=== PATIENT | female | born 1970 | race African-American/Black ===

== ENCOUNTER 2020-02-25 08:01 | Emergency (ER) | payer MEDICAID ==
[~2020-02-25] VITALS: Ht 167.6 cm; Wt 65.0 kg
[2020-02-25 08:37] VITALS: BP 136/89
[2020-02-25] MEDS ORDERED: SILVER SULFADIAZINE 1% CREAM 25GM TOP ONE (08:45)
[2020-02-25] MEDS ORDERED: TETANUS, DIPHTHERIA, PERTUSSIS VAC/PF 0.5ML (>7YR OLD) IM ONE (08:45)
[2020-02-25] MEDS ORDERED: CEPHALEXIN 250MG CAPSULE PO ONE (08:45)
[2020-02-25] MEDS ORDERED: ACETAMINOPHEN WITH CODEINE 300/30MG TABLET PO ONE (08:45)
[2020-02-25] MEDS ORDERED: BACITRACIN 15GM TUBE TOP ONE (08:45)
== END 2020-02-25 11:42 | disposition home or self-care (01) ==
LOC: ER 08:01
DX: S00.01XA Abrasion of scalp, initial encounter (principal); S10.83XA Contusion of other specified part of neck, initial encounter; S20.411A Abrasion of right back wall of thorax, initial encounter; S20.412A Abrasion of left back wall of thorax, initial encounter; S40.021A Contusion of right upper arm, initial encounter; S30.810A Abrasion of lower back and pelvis, initial encounter; V03.90XA Pedestrian on foot injured in collision with car, pick-up truck or van, unspecified whether traffic or nontraffic accident, initial encounter; Y93.89 Activity, other specified; Y92.488 Other paved roadways as the place of occurrence of the external cause
CPT/HCPCS: 73090; 73110; 73130; 90471; 90715; 99285